=== PATIENT | female | born 1955 | race Caucasian/White ===

== ENCOUNTER → 2019-10-26 08:49 | Outpatient (BNVA) | payer OTHER, MEDICARE, SELFPAY | PROVIDERS: Family Provider Family Medicine; PCP Family Medicine; Visit Provider Anesthesiology | DX: G89.29 Other chronic pain (principal); M54.5 Low back pain; M25.561 Pain in right knee; M25.562 Pain in left knee; F17.210 Nicotine dependence, cigarettes, uncomplicated; Z79.891 Long term (current) use of opiate analgesic; Z71.6 Tobacco abuse counseling | CPT/HCPCS: 99214 ==

== ENCOUNTER → 2020-02-22 10:43 | Outpatient (BNVA) | payer MEDICARE, SELFPAY | PROVIDERS: Family Provider Family Medicine; PCP Family Medicine; Visit Provider Nurse Practitioner | DX: G89.29 Other chronic pain (principal); M54.5 Low back pain; F17.210 Nicotine dependence, cigarettes, uncomplicated; Z79.891 Long term (current) use of opiate analgesic | CPT/HCPCS: 99214 ==

== ENCOUNTER → 2020-04-18 10:24 | Outpatient (BNVA) | payer MEDICARE, SELFPAY | PROVIDERS: Family Provider Family Medicine; PCP Family Medicine; Visit Provider Nurse Practitioner | DX: G89.29 Other chronic pain (principal); M54.5 Low back pain; F17.210 Nicotine dependence, cigarettes, uncomplicated; M25.561 Pain in right knee; M25.562 Pain in left knee; G62.9 Polyneuropathy, unspecified; Z79.891 Long term (current) use of opiate analgesic | CPT/HCPCS: 99214 ==

== ENCOUNTER → 2020-06-08 09:06 | Outpatient (BNVA) | payer MEDICARE, SELFPAY | PROVIDERS: Family Provider Family Medicine; PCP Family Medicine; Visit Provider Anesthesiology | DX: G89.29 Other chronic pain (principal); M54.5 Low back pain; M25.561 Pain in right knee; M25.562 Pain in left knee; G62.9 Polyneuropathy, unspecified; F17.210 Nicotine dependence, cigarettes, uncomplicated; Z79.1 Long term (current) use of non-steroidal anti-inflammatories (NSAID); Z79.891 Long term (current) use of opiate analgesic | CPT/HCPCS: 99214 ==

== ENCOUNTER → 2020-08-14 10:01 | Outpatient (BNVA) | payer MEDICARE, SELFPAY | PROVIDERS: Family Provider Family Medicine; PCP Family Medicine; Visit Provider Nurse Practitioner | DX: G89.29 Other chronic pain (principal); M54.5 Low back pain; G62.9 Polyneuropathy, unspecified; M25.569 Pain in unspecified knee; F17.210 Nicotine dependence, cigarettes, uncomplicated; Z79.891 Long term (current) use of opiate analgesic | CPT/HCPCS: 99213 ==

== ENCOUNTER → 2020-10-19 08:19 | Outpatient (BNVA) | payer MEDICARE, SELFPAY | PROVIDERS: Family Provider Family Medicine; PCP Family Medicine; Visit Provider Anesthesiology | DX: G89.29 Other chronic pain (principal); M54.5 Low back pain; M25.561 Pain in right knee; M25.562 Pain in left knee; F17.210 Nicotine dependence, cigarettes, uncomplicated; G62.9 Polyneuropathy, unspecified; Z79.891 Long term (current) use of opiate analgesic | CPT/HCPCS: 99214 ==

== ENCOUNTER → 2021-01-01 09:18 | Outpatient (BNVA) | payer MEDICARE, SELFPAY | PROVIDERS: Family Provider Family Medicine; PCP Family Medicine; Visit Provider Anesthesiology | DX: G89.29 Other chronic pain (principal); M54.5 Low back pain; M25.561 Pain in right knee; M25.562 Pain in left knee; F17.210 Nicotine dependence, cigarettes, uncomplicated; Z79.891 Long term (current) use of opiate analgesic | CPT/HCPCS: 99214 ==

== ENCOUNTER → 2021-03-06 13:00 | Outpatient (BNVA) | payer MEDICARE, SELFPAY | PROVIDERS: Family Provider Family Medicine; PCP Family Medicine; Visit Provider Nurse Practitioner | DX: G89.29 Other chronic pain (principal); M54.5 Low back pain; M25.561 Pain in right knee; G62.9 Polyneuropathy, unspecified; F17.210 Nicotine dependence, cigarettes, uncomplicated; Z79.891 Long term (current) use of opiate analgesic; Z71.6 Tobacco abuse counseling | CPT/HCPCS: 99213; 99214 ==

== ENCOUNTER → 2021-05-02 08:52 | Outpatient (BNVA) | payer MEDICARE, SELFPAY | PROVIDERS: Family Provider Family Medicine; PCP Family Medicine; Visit Provider Nurse Practitioner | DX: G89.29 Other chronic pain (principal); M54.5 Low back pain; G62.9 Polyneuropathy, unspecified; M25.569 Pain in unspecified knee; M25.552 Pain in left hip; F17.210 Nicotine dependence, cigarettes, uncomplicated; Z79.891 Long term (current) use of opiate analgesic; Z71.6 Tobacco abuse counseling | CPT/HCPCS: 99214 ==

== ENCOUNTER → 2021-07-09 09:53 | Outpatient (BNVA) | payer MEDICARE, SELFPAY | PROVIDERS: Family Provider Family Medicine; PCP Family Medicine; Visit Provider Anesthesiology | DX: G89.29 Other chronic pain (principal); M54.50 Low back pain, unspecified; G62.9 Polyneuropathy, unspecified; M25.561 Pain in right knee; M25.562 Pain in left knee; F17.200 Nicotine dependence, unspecified, uncomplicated; Z79.891 Long term (current) use of opiate analgesic; Z71.6 Tobacco abuse counseling | CPT/HCPCS: 99214 ==

== ENCOUNTER → 2021-09-05 09:01 | Outpatient (BNVA) | payer MEDICARE, SELFPAY | PROVIDERS: Family Provider Family Medicine; PCP Family Medicine; Visit Provider Anesthesiology | DX: G89.29 Other chronic pain (principal); M54.50 Low back pain, unspecified; M25.561 Pain in right knee; M25.562 Pain in left knee; G62.9 Polyneuropathy, unspecified; F17.200 Nicotine dependence, unspecified, uncomplicated; Z79.891 Long term (current) use of opiate analgesic; Z71.6 Tobacco abuse counseling | CPT/HCPCS: 99214 ==

== ENCOUNTER 2025-05-27 10:57 | Emergency (ER) | payer MEDICARE, SELFPAY ==
[2025-05-27 10:58] VITALS: BP 125/90; PULSE 114; RESP 18; TEMP 36.7; O2SAT 98
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
--- OUTSIDE RECORDS SUMMARY | 2025-05-27 11:04 | XMS_ITS | Patient Health Record ---
Author Organization [facility] Address [address] [place] [address] Care Team Providers Care Electromechanic Name Role Phone Gustavo Sharif MD Primary Care Provider Unavail able Yousuf Car Unavailable [phone] Migration, Provider Unavailable Unavailable Kimmy Ellis Unavailable [phone] Jose Tee Unavailable [phone] Pura Munoz Unavailable [phone] Allergies Allergen (clinical drug ingredient) Drug/Non Drug Allergy documented on EMR Reaction Allergy Type Onset Date Status pregabalin Lyrica Unknown Drug Allergy Active ciprofloxacin Ciprofloxacin diarrhea Drug Allergy Active gabapentin Gabapentin drowsiness Drug Allergy Acti ve tizanidine Tizanidine dizziness Drug Allergy Activ e Results Component Value Reference Range Flag Notes Urine Drug Screen (cup read) - [id number] Reviewed date:09/14/2024 08:31:38 AM Interpretation: Performing Lab: Notes/Report: OPI + Urine Drug Screen (cup read) - [id number] Reviewed date:04/05/2025 08:25:57 AM Interpretation: Performing Lab: Notes/Report: OPI + Hemoglobin A1C* Reviewed date:03/07/2025 09:11:45 AM Interpretation: Performing Lab: Notes/Report: HEMOGLOBIN A1c 10.6 Tox Results Reviewed date:02/03/2025 04:43:41 PM Interpretation: Performing Lab: Notes/Report: Urine Drug Screen (cup read) - [id number] Reviewed date:02/01/2025 08:08:04 AM Interpretation: Performing Lab: Notes/Report: OPI + Urine Drug Screen (cup read) - [id number] Reviewed date:11/24/2024 08:01:46 AM Interpretation: Performing Lab: Notes/Report: OPI + Urine Confirmation Panel (in strument) - [id number] Reviewed date:02/03/2025 04:31:05 PM Interpretation: Performing Lab: Notes/Report: 6-Acetylmorphine 0 <6 ng/mL N This neela t was developed and its performance characteristics determined by [facility]. It has not been cleared or approved by the U.S. Food and Drug Administration. 7-Aminoclonazepam 0 <60 ng/mL N This te st was developed and its performance characteristics determined by [facility]. It has not been cleared or approved by the U.S. Food and Drug Administration. Alprazolam 0 <60 ng/mL N This test was developed and its performance characteristics determined by [facility]. It has not been cleared or approved by the U.S. Food and Drug Administration. Amphetamine 0 <75 ng/mL N This test was developed and its performance characteristics determined by [facility]. It has not been cleared or approved by the U.S. Food and Drug Administration. aOH-Alprazolam 0 <60 ng/mL N This test was developed and its performance characteristics determined by [facility]. It has not been cleared or approved by the U.S. Food and Drug Administration. Buprenorphine 0.0 <7.5 ng/mL N This test w as developed and its performance characteristics determined by [facility]. It has not been cleared or approved by the U.S. Food and Drug Administration. Norbuprenorphine 0.0 <37.5 ng/mL N This te st was developed and its performance characteristics determined by [facility]. It has not been cleared or approved by the U.S. Food and Drug Administration. Carisoprodol 0 <75 ng/mL N This test wa s developed and its performance characteristics determined by [facility]. It has not been cleared or approved by the U.S. Food and Drug Administration. Codeine 0 <75 ng/mL N This test was developed and its performance characteristics determined by [facility]. It has not been cleared or approved by the U.S. Food and Drug Administration. EDDP 0 <75 ng/mL N This test was developed and its performance characteristics determined by [facility]. It has not been cleared or approved by the U.S. Food and Drug Administration. Fentanyl 0 <6 ng/mL N This test was developed and its performance characteristics determined by [facility]. It has not been cleared or approved by the U.S. Food and Drug Administration. Hydrocodone 1664 <75 ng/mL H This test was developed and its performance characteristics determined by [facility]. It has not been cleared or approved by the U.S. Food and Drug Administration. Hydromorphone 78 <75 ng/mL H This test w as developed and its performance characteristics determined by [facility]. It has not been cleared or approved by the U.S. Food and Drug Administration. Lorazepam 0 <60 ng/mL N This test was developed and its performance characteristics determined by [facility]. It has not been cleared or approved by the U.S. Food and Drug Administration. MDMA 0 <75 ng/mL N This test was developed and its performance characteristics determined by [facility]. It has not been cleared or approved by the U.S. Food and Drug Administration. Meperidine 0.0 <37.5 ng/mL N This test was developed and its performance characteristics determined by [facility]. It has not been cleared or approved by the U.S. Food and Drug Administration. Meprobamate 0 <75 ng/mL N This test was developed and its performance characteristics determined by [facility]. It has not been cleared or approved by the U.S. Food and Drug Administration. Methamphetamine 22 <75 ng/mL N This test was developed and its performance characteristics determined by [facility]. It has not been cleared or approved by the U.S. Food and Drug Administration. Methadone 0 <75 ng/mL N This test was developed and its performance characteristics determined by [facility]. It has not been cleared or approved by the U.S. Food and Drug Administration. Morphine 0 <75 ng/mL N This test was developed and its performance characteristics determined by [facility]. It has not been cleared or approved by the U.S. Food and Drug Administration. Nordiazepam 0 <60 ng/mL N This test was developed and its performance characteristics determined by [facility]. It has not been cleared or approved by the U.S. Food and Drug Administration. Norfentanyl 0 <6 ng/mL N This test was developed and its performance characteristics determined by [facility]. It has not been cleared or approved by the U.S. Food and Drug Administration. Normeperidine 0.0 <37.5 ng/mL N This test was developed and its performance characteristics determined by [facility]. It has not been cleared or approved by the U.S. Food and Drug Administration. O-desmethyltramadol 0 <75 ng/mL N This test was developed and its performance characteristics determined by [facility]. It has not been cleared or approved by the U.S. Food and Drug Administration. Oxazepam 0 <60 ng/mL N This test was developed and its performance characteristics determined by [facility]. It has not been cleared or approved by the U.S. Food and Drug Administration. Oxycodone 0.0 <37.5 ng/mL N This test was developed and its performance characteristics determined by [facility]. It has not been cleared or approved by the U.S. Food and Drug Administration. Oxymorphone 0 <75 ng/mL N This test was developed and its performance characteristics determined by [facility]. It has not been cleared or approved by the U.S. Food and Drug Administration. Phencyclidine 0.0 <7.5 ng/mL N This test w as developed and its performance characteristics determined by [facility]. It has not been cleared or approved by the U.S. Food and Drug Administration. Tapentadol 0.0 <37.5 ng/mL N This test was developed and its performance characteristics determined by [facility]. It has not been cleared or approved by the U.S. Food and Drug Administration. Temazepam 0 <60 ng/mL N This test was developed and its performance characteristics determined by [facility]. It has not been cleared or approved by the U.S. Food and Drug Administration. Tramadol 0 <75 ng/mL N This test was developed and its performance characteristics determined by [facility]. It has not been cleared or approved by the U.S. Food and Drug Administration. Norhydrocodone >5000 <75 ng/mL > This test was developed and its performance characteristics determined by [facility]. It has not been cleared or approved by the U.S. Food and Drug Administration. Noroxycodone 0 <38 ng/mL N This test wa s developed and its performance characteristics determined by [facility]. It has not been cleared or approved by the U.S. Food and Drug Administration. Pregabalin 0 <225 ng/mL N This test was developed and its performance characteristics determined by [facility]. It has not been cleared or approved by the U.S. Food and Drug Administration. Gabapentin 0 <225 ng/mL N This test was developed and its performance characteristics determined by [facility]. It has not been cleared or approved by the U.S. Food and Drug Administration. Benzoylecgonine 0.0 <37.5 ng/mL N This neela t was developed and its performance characteristics determined by [facility]. It has not been cleared or approved by the U.S. Food and Drug Administration. 4-Hydroxy Xylazine 0 <25 ng/mL N This t est was developed and its performance characteristics determined by [facility]. It has not been cleared or approved by the U.S. Food and Drug Administration. [place] Drug Screen (Datto by instrument) - [id number] Reviewed date:09/19/2024 03:33:16 PM Interpretation: Performing Lab: Notes/Report: Reason For Referral No Information Medications Medication SIG (Take, Route, Frequency, Duration) Notes Start Date End Date Status Jvroayy-Zwgkjvkvutr-T orzolamid Active Farxiga 10 MG Tablet 1 tablet Orally Once a day; Duration: 30 days May sub the generic if cheaper Patient has free one month Voucher: BIN: [id number] PCN: [id number] GRP: [id number] ID: [id number] 02/24/2024 Not-Taking amLODIPine Besylate 10 MG Tablet 1 tablet Orally Once a day Active FreeStyle Ana 2 Sensor - Miscellaneous as directed SQ Change every 14 days; Duration: 30 days Not-Taking Black Cohosh 540 MG Capsule 1 capsule Orally daily Not-Taking buPROPion HCl *Pick strength-form from [employer] for eRX* Not-Taking Biotin *Pick strength-form from [employer] for eRX* Not-Taking cyclobenzaprine *Reorder from [employer] for eRx and Interaction Alerts* Not-Taking Multivitamin with Minerals *Reorder from [employer] for eRx and Interaction Alerts* Not-Taking Flexeril Active buPROPion HCl 150 MG Tablet Extended Release 1 tablet Orally Twice a day Active HYDROcodone-Acetamino phen 5-325 MG Tablet 1 tablet as needed Orally every 6 hrs Not-Taking Colace Not-Taking Lisinopril *Pick strength-form from [facility] for eRX* Not-Taking B Complex Not-Taking glipiZIDE 10 MG Tablet 1 tablet 30 minutes before breakfast Orally Once a day Not-Taking Biotin 5000 5 MG Capsule 1 capsule Orally Once a day Active HYDROcodone-Acetamino phen *Pick strength-form from [facility] for eRX* Not-Taking Meloxicam 15 MG Tablet 1 tablet Orally Once a day; Duration: 30 days Fill 30 days from previous Rx 02/01/2025 Active Latanoprost *Pick strength-form from [facility] for eRX* Not-Taking Rybelsus 7 MG Tablet 1 tablet at least 30 minutes before first food, beverage or other oral medicine of the day Orally Once a day; Duration: 30 days Dx: E11.65 03/07/2025 Active Nystatin 077825 UNIT/GM Powder 1 application Externally Twice a day; Duration: 30 days 03/07/2025 Active Lisinopril 20 MG Tablet 1 tablet Orally Once a day Active Jardiance 25 MG Tablet 1 tablet Orally Once a day; Duration: 30 days 12/02/2024 Active Soma 350 MG Tablet 1 tablet as needed Orally Three times a day Not-Taking Jardiance 10 MG Tablet 1 tablet Orally Once a day; Duration: 30 days 09/07/2024 Not-Taking Vitamin B12 Not-Taki ng Pregabalin 150 MG Capsule 1 capsule Orally Twice a day Not-Taking Simvastatin *Pick strength-form from [facility] for eRX* Not-Taking Xanax 0.5 MG Tablet 1 tablet Orally PRN Active Amlodipine *Reorder from [facility] for eRx and Interaction Alerts* Not-Taking Simvastatin 10 MG Tablet 2 tablets in the evening Orally Once a day Active Vitamin B Complex *Pick strength-form from [facility] for eRX* Active metFORMIN HCl ER 500 MG Tablet Extended Release 24 Hour 2 tablets Orally Twice Daily as directed; Duration: 90 days Not-Taking Multivitamin - Tablet 1 tablet Orally Once a day Active HYDROcodone-Acetamino phen 10-325 MG Tablet 1 tablet Orally every 6 hrs; Duration: 30 days As needed Do not exceed 4 per day Fill on 05/23/2025 04/06/2025 Active Social History Tobacco Use: Social History Observation Description Date Details (start date - stop date) Current Smoker NA - NA Sex Assigned At : Social History Observation Description Sex Assigned At Female Social History Drugs/Alcohol: Social Info Question Answer Notes Alcohol Screen (Audit-C) Did you have a drink containing alcohol in the past year? No Points 0 Interpretation Negative Tobacco Use: Social Info Question Answer Notes Tobacco Control (Standard) Tobacco use: Current smoker How often do you smoke cigarettes? Every day How many cigarettes a day do you smoke? 21-30 How soon after you wake up do you smoke your first cigarette? 6-30 minutes Additional Details Category Social Info Options Details Migrated Social History Migrated Social History Alcoholic beverages? - No, Currently on disability? - Yes, Drug or substance abuse? - No, Marital Status - , Nonprescription drug use? - No, Smoking - 1 and 1/2 PPD, Smoking status (MU) - Current every day smoker, Working currently? - No Problems Problem Type SNOMED Code ICD Code Onset Dates Problem Status W/U Status Risk Notes Problem Chronic pain syndrome (597011527) Chronic pain syndrome (G89.4) 01/06/20 24 Active confirmed Problem Diverticular disease of colon (660272575) Diverticulosis of large intestine without perforation or abscess without bleeding (K57.30) Active confirmed Problem Primary osteoarthritis (143506726) Unilateral primary osteoarthritis, right knee (M17.11) 01/06/20 24 Active confirmed Problem Osteoarthritis (173989965) Unspecified osteoarthritis, unspecified site (M19.90) 01/06/20 24 Active confirmed Problem Lumbosacral spondylosis without myelopathy (disorder) (12547758) Spondylosis without myelopathy or radiculopathy, lumbosacral region (M47.817) 01/06/20 24 Active confirmed Problem Lumbosacral radiculopathy (2836398) Intervertebral disc disorders with radiculopathy, lumbosacral region (M51.17) 01/06/20 24 Active confirmed Problem High risk drug 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 status (440212472) 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) Active confirmed Problem Diabetic peripheral neuropathy associated with type 2 diabetes mellitus (6943451975166) Type 2 diabetes mellitus with diabetic neuropathy, unspecified (E11.40) 01/06/20 24 Active confirmed Problem Hyperglycemia due to type 2 diabetes mellitus (765934780109256) Type 2 diabetes mellitus with hyperglycemia, without long-term current use of insulin (E11.65) Active confirmed Problem Elevated fasting lipid profile (509201425941) Elevated lipids (E78.5) Active confirmed Problem Diabetic peripheral neuropathy (789910766) Diabetic peripheral neuropathy (E11.42) Active confirmed Problem Obesity (711558578) Obesity (E66.9) Active confirmed Problem Hypertension (10710647) Hypertension (I10) Active confirmed Problem Hyperlipidemia (71648154) Hyperlipidemia (E78.5) Active confirmed Vital Signs Heart Rate 103 /min 03/07/2025 Blood pressure diastolic 76 mm Hg 03/07/2025 Oximetry 96 % 03/07/2025 Height-cm 160.02 cm 04/05/2025 Weight-kg 92.99 kg 04/05/2025 Height 63 in 04/05/2025 Blood pressure systolic 110 mm Hg 03/07/2025 Weight 205 lbs 04/05/2025 BMI 36.31 kg/m2 04/05/2025 Encounters Encounter Location Date Provider Diagnosis [facility] [address] [place] [address] 07/13/2024 [facility] [address] [place] [address] 08/12/2024 Kimmy Ellis Type 2 diabetes mellitus with hyperglycemia, without long-term current use of insulin E11.65 ; Hypertension I10 ; Diabetic peripheral neuropathy E11.42 ; Hyperlipidemia E78.5 ; Obesity E66.9 and Financial difficulties Z59.9 [facility] [address] [place] [address] 09/14/2024 [facility] [place] Chronic pain syndrome G89.4 ; Spondylosis without myelopathy or radiculopathy, lumbosacral region M47.817 ; Hip pain, right M25.551 ; Hip pain, left M25.552 and 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 [place] [address] 12/02/2024 Kimmy Ellis Type 2 diabetes mellitus with hyperglycemia, without long-term current use of insulin E11.65 ; Obesity E66.9 ; Hyperlipidemia E78.5 ; Hypertension I10 and Diabetes education, encounter for Z71.89 [facility] [address] [place] [address] 02/01/2025 Yousuf Lively Chronic pain syndrome G89.4 ; Spondylosis without myelopathy or radiculopathy, lumbosacral region M47.817 ; Hip pain, right M25.551 ; Hip pain, left M25.552 ; Left foot pain M79.672 ; Right foot pain M79.671 ; Knee pain, right M25.561 ; Knee pain, left M25.562 and penitentiary (current) use of opiate analgesic Z79.891 [facility] [place] [address] [facility] [place] [address] 03/07/2025 Kimmy Ellis Type 2 diabetes mellitus with hyperglycemia, without long-term current use of insulin E11.65 ; Hypertension I10 ; Hyperlipidemia E78.5 ; Obesity E66.9 ; Elevated hemoglobin A1c R73.09 and Yeast dermatitis B37.2 [facility] [address] [place] [address] 04/05/2025 Yousuf Lively Chronic pain syndrome G89.4 ; Spondylosis without myelopathy or radiculopathy, lumbosacral region M47.817 ; Hip pain, right M25.551 ; Hip pain, left M25.552 ; Left foot pain M79.672 ; Right foot pain M79.671 ; Knee pain, right M25.561 ; Knee pain, left M25.562 and penitentiary (current) use of opiate analgesic Z79.891 [facility] 0 0 07/02/2024 Provider Migration [facility] 0 0 07/03/2024 Provider Migration [facility] [address] [place] [address] 06/01/2024 Kimmy [facility] [address] [address] 08/12/2024 [facility] [address] [place] [place] [address] 09/14/2024 Pura Tammy Chronic pain syndrome G89.4 [facility] [address] [facility] [place] [address] 11/24/2024 Pura Tammy Spondylosis without myelopathy or radiculopathy, lumbosacral region M47.817 [facility] [address] [facility] [place] [address] 02/01/2025 Pura Tammy Spondylosis without myelopathy or radiculopathy, lumbosacral region M47.817 [facility] [address] [address] 02/02/2025 Kimmy [facility] [address] [place] [address] 03/15/2025 Jose Tee [facility] [address] [address] 03/21/2025 [facility] [address] [facility] [place] [address] 04/05/2025 Pura Tammy Spondylosis without myelopathy or radiculopathy, lumbosacral region M47.817 Assessments Encounter Date Diagnosis (ICD Code) Assessment Notes Treatment Notes Treatment Clinical Notes Section Notes 08/12/2024 Type 2 diabetes mellitus with hyperglycemia, without long-term current use of insulin (ICD-10 - E11.65) Patient reports taking metformin twice daily and reports no issues. She was not able to get the Farxiga due to cost. Discussed trying the Jardiance and samples are provided, a new prescription is sent for September. Patient reports using a fingerstick blood glucose monitor as needed, she reports higher readings. Reviewed signs and symptoms of hypoglycemia and hyperglycemia and treatment for each. She does want to use a cgm, but the sensors are too costly. Patient verbalizes understanding of low carbohydrate low sodium and heart healthy diet, discussed carbohydrate food groups and encouraged water and other non calorie beverages. Written and verbal instructions are given for meal planning. Advised patient to increase her fiber intake daily for more consistent bowel movements. All questions answered and concerns addressed. Patient will follow up with her primary care clinic as directed and with Ivan in three months or PRN. Total time spent with patient is 30 minutes 08/12/2024 Hypertension (ICD-10 - I10) 09/14/2024 Chronic pain syndrome (ICD-10 - G89.4) I had a nice discussion with the patient today in regard to her ongoing chronic pain. Patient reports that she is managing well with help of her medication regimen. Patient denies any health changes since her last office visit. Compliance was assessed and found to be consistent with care today. We will continue her current medication regimen. Patient will return to clinic in 2 months to continue assessment and evaluation. 09/14/2024 Spondylosis without myelopathy or radiculopathy, lumbosacral region (ICD-10 - M47.817) 09/14/2024 Chronic pain syndrome (ICD-10 - G89.4) 11/24/2024 Chronic pain syndrome (ICD-10 - G89.4) The patient continues with chronic pain requiring treatment to help restore function and improve quality of life. Risks of opioid therapy as well as interaction of opioids with alcohol, illicit drugs, muscle relaxers, and other sedative medications are reviewed briefly with patient again today. The patient has trialed all other reasonable treatment options and uses the medication to alleviate pain in order to remain active and rest with less pain. No clinically relevant medication side effects are noted. Last UDS and [place] RECEIVING MANAGER reviewed today. Patient is advised that best long-term goals include increased activity, core strengthening, proper weight management, coping strategies, avoidance of painful triggers, and targeted interventional therapy. We will see the patient for routine follow up in accordance with all clinic policies. We did remind patient today of current guidelines to decrease opioid when possible. We will continue to stress nonopioid treatment. URINE TESTING TODAY; POINT OF SERVICE Urine drug screening will be performed today to monitor compliance with opioid therapy or to serve as a baseline screen for a patient who may be a candidate for opioid therapy in the future, pending UDS results. We will monitor with in-office testing (rapid testing) today and review the results prior to dispensing prescription, as well. Patient has been made aware of this policy. Refill HYDROcodone-Acet aminophen Tablet, 10-325 MG, Orally, 120 Tablet, 1 tablet, every 6 hrs, 30 days, Refills=0 Refill HYDROcodone-Acet aminophen Tablet, 10-325 MG, Orally, 120 Tablet, 1 tablet, every 6 hrs, 30 days, Refills=0 Refill Meloxicam Tablet, 15 MG, Orally, 30, 1 tablet, Once a day, 30 days, Refills=1 11/24/2024 Spondylosis without myelopathy or radiculopathy, lumbosacral region (ICD-10 - M47.817) 02/01/2025 Chronic pain syndrome (ICD-10 - G89.4) The patient continues with chronic pain requiring treatment to help restore function and improve quality of life. Risks of opioid therapy as well as interaction of opioids with alcohol, illicit drugs, muscle relaxers, and other sedative medications are reviewed briefly with patient again today. The patient has trialed all other reasonable treatment options and uses the medication to alleviate pain in order to remain active and rest with less pain. No clinically relevant medication side effects are noted. Last UDS and AR RECEIVING MANAGER reviewed today. Patient is advised that best long-term goals include increased activity, core strengthening, proper weight management, coping strategies, avoidance of painful triggers, and targeted interventional therapy. We will see the patient for routine follow up in accordance with all clinic policies. We did remind patient today of current guidelines to decrease opioid when possible. We will continue to stress nonopioid treatment. RECOMMEND URINE TESTING TODAY Urine drug screening will be performed today to monitor compliance with opioid therapy or to serve as a baseline screen for a patient who may be a candidate for opioid therapy in the future, pending UDS results. We will monitor with in-office testing (rapid testing) today and review the results prior to dispensing prescription. All positive results will be sent for quantitative analysis to ensure accuracy and quantify amounts. Any expected positive results that return negative will also be sent for quantitative analysis. Any questionable read or any medication we cannot test for in the office confidently will be sent for quantitative analysis, as well. Patient has been made aware of this policy and agrees to abide by our urine testing policy. 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 Discussed increasing the Jardiance to 25mg daily, patient agrees and this is sent to her pharmacy. Patient reports using a fingerstick blood glucose monitor. Reviewed signs and symptoms of hypoglycemia and hyperglycemia and treatment for each. She would like to get use a continuous glucose monitor to help her get back on track with her diet. [employer] 2 paedodontist trinh set up on phone and the sensor, is placed on left upper arm without difficulty. The sensor connects to the paedodontist and the one-hour warm-up begins. Explained skin care before and after placing the sensors. Education on when to change the sensor reviewed. Verbal and written instructions given including [employer] Customer support contact information. Patient understands that the sensors will likely be an [id number] expense, she does not want a prescription at this time. Patient verbalizes understanding of low carbohydrate low sodium and heart heatlhy diet, discussed carbohydrate food groups and encouraged water and other non calorie beverages. All questions answered and concerns addressed. 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 Discussed starting a GLP-1, she agrees to take Rybelsus 3mg once daily and increase to 7mg daily if tolerated, also encouraged her to take metformin at least once daily, patient agrees and this is sent to her pharmacy. Patient reports using a fingerstick blood glucose monitor. Reviewed signs and symptoms of hypoglycemia and hyperglycemia and treatment for each. Patient is able to exercise daily, information provided to patient on increasing exercise as tolerated. Patient verbalizes understanding of low carbohydrate diet, discussed carbohydrate food groups and encouraged water and other non calorie beverages. She is concerned about a painful cyst on her Left nipple that has appeared twice in the past year and each time she has squeezed and expelled some type of drainage then it goes away. She is up-to-date on her screening mammogram and reports no indicated issues. She also has red yeast rash in skin folds under her breasts. 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 All questions answered and concerns addressed. Patient will follow up with her primary care clinic as directed and with Ivan in three months.Total time spent with patient is 35 minutes 03/07/2025 Hypertension (ICD-10 - I10) 04/05/2025 Chronic pain syndrome (ICD-10 - G89.4) The patient continues with chronic pain requiring treatment to help restore function and improve quality of life. Risks of opioid therapy as well as interaction of opioids with alcohol, illicit drugs, muscle relaxers, and other sedative medications are reviewed briefly with patient again today. The patient has trialed all other reasonable treatment options and uses the medication to alleviate pain in order to remain active and rest with less pain. No clinically relevant medication side effects are noted. Last UDS and AR RECEIVING MANAGER reviewed today. Patient is advised that best long-term goals include increased activity, core strengthening, proper weight management, coping strategies, avoidance of painful triggers, and targeted interventional therapy. We will see the patient for routine follow up in accordance with all clinic policies. We did remind patient today of current guidelines to decrease opioid when possible. We will continue to stress nonopioid treatment. URINE TESTING TODAY; POINT OF SERVICE Urine drug screening will be performed today to monitor compliance with opioid therapy or to serve as a baseline screen for a patient who may be a candidate for opioid therapy in the future, pending UDS results. We will monitor with in-office testing (rapid testing) today and review the results prior to dispensing prescription, as well. Patient has been made aware of this policy. 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) 04/05/2025 Hip pain, right (ICD-10 - M25.551) 03/07/2025 Hyperlipidemia (ICD-10 - E78.5) 12/02/2024 Hyperlipidemia (ICD-10 - E78.5) 02/01/2025 Hip pain, right (ICD-10 - M25.551) 11/24/2024 Hip pain, right (ICD-10 - M25.551) 09/14/2024 Hip pain, right (ICD-10 - M25.551) 08/12/2024 Diabetic peripheral neuropathy (ICD-10 - E11.42) 08/12/2024 Hyperlipidemia (ICD-10 - E78.5) 09/14/2024 Hip pain, left (ICD-10 - M25.552) 11/24/2024 Hip pain, left (ICD-10 - M25.552) 02/01/2025 Hip pain, left (ICD-10 - M25.552) 12/02/2024 Hypertension (ICD-10 - I10) 03/07/2025 Obesity (ICD-10 - E66.9) 04/05/2025 Hip pain, left (ICD-10 - M25.552) 04/05/2025 Left foot pain (ICD-10 - M79.672) 03/07/2025 Elevated hemoglobin A1c (ICD-10 - R73.09) 12/02/2024 Diabetes education, encounter for (ICD-10 - Z71.89) 02/01/2025 Left foot pain (ICD-10 - M79.672) 11/24/2024 Left foot pain (ICD-10 - M79.672) 09/14/2024 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) 08/12/2024 Obesity (ICD-10 - E66.9) 08/12/2024 Financial difficulties (ICD-10 - Z59.9) 11/24/2024 Right foot pain (ICD-10 - M79.671) 02/01/2025 Right foot pain (ICD-10 - M79.671) 03/07/2025 Yeast dermatitis (ICD-10 - B37.2) 04/05/2025 Right foot pain (ICD-10 - M79.671) 04/05/2025 Knee pain, right (ICD-10 - M25.561) 02/01/2025 Knee pain, right (ICD-10 - M25.561) 11/24/2024 Knee pain, right (ICD-10 - M25.561) 11/24/2024 Knee pain, left (ICD-10 - M25.562) 02/01/2025 Knee pain, left (ICD-10 - M25.562) 04/05/2025 Knee pain, left (ICD-10 - M25.562) 04/05/2025 penitentiary (current) use of opiate analgesic (ICD-10 - Z79.891) 02/01/2025 penitentiary (current) use of opiate analgesic (ICD-10 - Z79.891) 11/24/2024 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) 09/14/2024 Other Continue HYDROcodone-Aceta minophen Tablet, 10-325 MG, Orally, 120 Tablet, 1 tablet, every 6 hrs, 30 days, Refills=0 Continue HYDROcodone-Aceta minophen Tablet, 10-325 MG, Orally, 120 Tablet, 1 tablet, every 6 hrs, 30 days, Refills=0 Continue Meloxicam Tablet, 15 MG, Orally, 30, 1 tablet, Once a day, 30 days, Refills=1 Plan Of Treatment Pending Test Test Name Order Date CBC w\ Auto Diff [id number] 10/23/2023 Comprehensive Metabolic Panel (CMP) 8005 3 10/23/2023 Hemoglobin A1c 16850 10/23/2023 Lipid Panel Reflex DLDL 47853, 80476 Vitamin B12 (B) 98544 10/23/2023 Vitamin D 1,25 Dihydroxy (B) 61622 10/23 Microalbumin (U) Random 47174 10/23/2023 Next Appt Details Provider Name:Kimmy younger, 06/07/2025 08:00:00 AM, [address] [place], [address], Provider Name:Yousuf tai, 06/19/2025 08:40:00 AM, [place], [address], Provider Name:Ivonne Gibbs, 08/11/2025 08:20:00 AM, [place], [address], Insurance Providers Payer Name Payer Address Payer Phone Subscriber Number Group Number Insured Name Patient Relationship to Insured Coverage Start Date Coverage End Date [employer] Medicare Replacement [address] [address] [place] [address] [id number] Raya Lombardi Self - patient is the insured Medications Administered Medication Instructions Date of Administration Dosage Notes Cyanocobalamin 07/02/2022 1000 ug Medical (General) History Medical History History ICD Code Hypertension Arthritis Neuropathy Depression hyperlipidemia Surgical History Surgery Date(Month/Year) Xen Gel stint Lt eye 03/2025 Left total knee replacement cataract removal R&L Hospitalization History Reason Date(Month/Year) childbirth See surgical
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
[2025-05-27] MEDS: iohexol 350 mg/mL 500 mL Btl (per mL) IV (11:20)
== END 2025-05-27 11:42 | disposition home or self-care (01) ==
PROVIDERS: Emergency Provider Emergency Medicine; Family Provider Family Medicine; PCP Family Medicine
DX: S20.212A Contusion of left front wall of thorax, initial encounter (principal); V89.2XXA Person injured in unspecified motor-vehicle accident, traffic, initial encounter; F17.210 Nicotine dependence, cigarettes, uncomplicated
CPT/HCPCS: 71260; 99285